=== PATIENT | female | born 1995 ===

== ENCOUNTER 2017-02-18 00:22 | Emergency (ER) | payer OTHER ==
[~2017-02-18] VITALS: Ht 157.5 cm; Wt 48.5 kg
[2017-02-18 00:30] VITALS: TEMP 36.8; Ht 157.5 cm; Wt 48.5 kg
[2017-02-18 01:02] LABS: BASO % 0.1 %; BASO ABS # 0.01 K/uL (0-0.2); COMPLETE YES; EOS % 1.2 %; HEMATOCRIT 41.5 % (37-47); IG% 0.1 %; LYMPH % 49.2 %; LYMPH ABS # 3.76 K/uL (1.2-3.4); MEAN CELL VOLUME 88.9 fL (80-100); MEAN CORPUSCULAR HEMOGLOBIN 30.4 pg (25-34); MEAN CORPUSCULAR HGB CONC 34.2 g/dl (32-36); MEAN PLATELET VOLUME 9.4 fL (7.4-10.4); MONO % 7.3 %; NEUT % 42.1 %; PLATELET COUNT 276 K/uL (130-400); RED BLOOD COUNT 4.67 M/uL (4.2-5.4); WHITE BLOOD COUNT 7.64 K/uL (4.8-10.8)
[2017-02-18] MEDS ORDERED: BCPILLS PO (01:18)
[2017-02-18 01:19] LABS: MANUAL MICROSCOPIC REQUIRED? NO; REVIEW REQ? NO; URINE APPEARANCE CLEAR (CLEAR); URINE BILIRUBIN NEG (NEG); URINE COLOR YELLOW; URINE NITRITE NEG (NEG); URINE SPECIFIC GRAVITY 1.009 (1.000-1.030); UROBILINOGEN NEG (NEG)
[2017-02-18 01:27] LABS: ALT/SGPT 44 U/L (12-78); AST/SGOT 26 U/L (15-37); BLOOD UREA NITROGEN 6 mg/dl (7-18); CALCIUM 8.9 mg/dl (8.5-10.1); CARBON DIOXIDE 26 mmol/L (21-32); CHLORIDE 106 mmol/L (98-107); CREATININE 0.69 mg/dl (0.60-1.20); GLUCOSE 90 mg/dl (70-99); POTASSIUM 3.3 mmol/L (3.5-5.1); SODIUM 137 mmol/L (136-145)
[2017-02-18 01:29] LABS: ALKALINE PHOSPHATASE 71 U/L (45-117)
[2017-02-18 03:20] VITALS: BP 122/76; PULSE 72; O2SAT 100
--- NOTE | 2017-02-18 03:46 | EMERGENCY ROOM VISIT NOTE ---
History Report prepared by Dionibe: Alice Aggarwal Under the Supervision of: Dr. Feng Lobo M.D. First contact with patient: 00:36 Chief Complaint: KIDNEY STONE Stated Complaint: KIDNEY STONE History of Present Illness The patient is a 21 year old female who presents to the Emergency Room with complaints of worsening right sided flank pain for the past 2 days. The pain is located in her right sided flank and she rates her discomfort as a 5/10 in severity. She admits to a history of kidney stones, stating they were first diagnosed this past summer, back at home in [place], [place]. She denies any recent traumatic injuries to her back or lifting anything heavy recently. She complains of increasingly malodorous urine but denies any hematuria or dysuria. She has experienced a loss of appetite and nausea since her pain started. She also complains of a recent cough and cold symptoms, for which she has been taking DayQuil. Her LMP was 2 weeks ago and abnormally normal. The patient denies any recent LOC, headache, fevers, chills, diaphoresis, visual changes, neck pain, chest pain, breathing difficulties, vomiting, abdominal pain, melena , hematochezia, numbness, weakness, lymphadenopathy, rash, or other complaints. Source of History: patient Onset: 2 days [employer] Position: back (right sided flank) Symptom Intensity: 5/10 Timing: worsening Associated Symptoms: + cough (cough and cold symptoms), + nausea, + urinary symptoms Review of Systems See HPI for pertinent positives and negatives. A total of ten systems were reviewed and were otherwise negative. Past Medical & Surgical Medical Problems: (1) Kidney stones Social History Smoking Status: Never Smoker Alcohol Use: occasionally Drug Use: none Marital Status: single Housing Status: lives with roommate Occupation Status: [employer] student Current/Historical Medications Scheduled Control Pills ( Control Pills), 1 TAB PO DAILY Physical Exam Vital Signs Date Time Temp Pulse Resp B/P (MAP) Pulse Ox O2 Delivery O2 Flow Rate FiO2 02/18/17 03:20 72 18 122/76 100 02/18/17 01:44 70 18 116/68 100 Room Air 02/18/17 01:20 78 02/18/17 00:30 36.8 86 20 118/82 99 Room Air Physical Exam GENERAL: Awake, alert, well-appearing, in no distress HENT: Normocephalic, atraumatic. Oropharynx unremarkable. EYES: Normal conjunctiva. Sclera non-icteric. NECK: Supple. No nuchal rigidity. FROM. No JVD. RESPIRATORY: Clear to auscultation. CARDIAC: Regular rate, normal rhythm. Extremities warm and well perfused. Pulses equal. ABDOMEN: Soft, non-distended. No tenderness to palpation. No rebound or guarding. No masses. RECTAL: Deferred. MUSCULOSKELETAL: Chest examination reveals no tenderness. The back is symmetrical on inspection without obvious abnormality. Right sided CVA tenderness to palpation. No joint edema. LOWER EXTREMITIES: Calves are equal size bilaterally and non-tender. No edema. No discoloration. NEURO: Normal sensorium. No sensory or motor deficits noted. SKIN: No rash or jaundice noted. Medical Decision & Procedures ER Provider Diagnostic Interpretation: Radiology results as stated below per my review and radiologist interpretation: CT ABDOMEN & PELVIS Without Contrast: Bilateral renal pelviectasis or extrarenal pelves. No evidence of ureteral stone. Mildly thickened underdistended bladder. Areas of mild small bowel wall thickening or underdistention. Correlate clinically for enteritis. No evidence of bowel obstruction. Normal caliber appendix. Radiologist: Zahra Moscoso M.D. Laboratory Results 02/18/17 00:50 Red Blood Count 4.67, Mean Corpuscular Volume 88.9, Mean Corpuscular Hemoglobin 30.4, Mean Corpuscular Hemoglobin Concent 34.2, Mean Platelet Volume 9.4, Neutrophils (%) (Auto) 42.1, Lymphocytes (%) (Auto) 49.2, Monocytes (%) (Auto) 7.3, Eosinophils (%) (Auto) 1.2, Basophils (%) (Auto) 0.1, Neutrophils # (Auto) 3.21, Lymphocytes # (Auto) 3.76, Monocytes # (Auto) 0.56, Eosinophils # (Auto) 0.09, Basophils # (Auto) 0.01 02/18/17 00:50 Test 02/18/17 00:50 02/18/17 00:55 White Blood Count 7.64 K/uL (4.8-10.8) Red Blood Count 4.67 M/uL (4.2-5.4) Hemoglobin 14.2 g/dL (12.0-16.0) Hematocrit 41.5 % (37-47) Mean Corpuscular Volume 88.9 fL (80-100) Mean Corpuscular Hemoglobin 30.4 pg (25-34) Mean Corpuscular Hemoglobin Concent 34.2 g/dl (32-36) Platelet Count 276 K/uL (130-400) Mean Platelet Volume 9.4 fL (7.4-10.4) Neutrophils (%) (Auto) 42.1 % Lymphocytes (%) (Auto) 49.2 % Monocytes (%) (Auto) 7.3 % Eosinophils (%) (Auto) 1.2 % Basophils (%) (Auto) 0.1 % Neutrophils # (Auto) 3.21 K/uL (1.4-6.5) Lymphocytes # (Auto) 3.76 K/uL (1.2-3.4) Monocytes # (Auto) 0.56 K/uL (0.11-0.59) Eosinophils # (Auto) 0.09 K/uL (0-0.5) Basophils # (Auto) 0.01 K/uL (0-0.2) RDW Standard Deviation 37.4 fL (36.4-46.3) RDW Coefficient of Variation 11.7 % (11.5-14.5) Immature Granulocyte % (Auto) 0.1 % Immature Granulocyte # (Auto) 0.01 K/uL (0.00-0.02) Anion Gap 5.0 mmol/L (3-11) Est Creatinine Clear Calc Drug Dose 100.4 ml/min Estimated GFR () 146.3 Estimated GFR (Non- 126.2 BUN/Creatinine Ratio 9.0 (10-20) Calcium Level 8.9 mg/dl (8.5-10.1) Total Bilirubin 0.3 mg/dl (0.2-1) Direct Bilirubin < 0.1 mg/dl (0-0.2) Aspartate Amino Transf (AST/SGOT) 26 U/L (15-37) Alanine Aminotransferase (ALT/SGPT) 44 U/L (12-78) Alkaline Phosphatase 71 U/L (45-117) Total Protein 8.3 gm/dl (6.4-8.2) Albumin 4.5 gm/dl (3.4-5.0) Lipase 247 U/L (73-393) Urine Color YELLOW Urine Appearance CLEAR (CLEAR) Urine pH 6.0 (4.5-7.5) Urine Specific [place] 1.009 (1.000-1.030) Urine Protein NEG (NEG) Urine Glucose (UA) NEG (NEG) Urine Ketones NEG (NEG) Urine Occult Blood NEG (NEG) Urine Nitrite NEG (NEG) Urine Bilirubin NEG (NEG) Urine Urobilinogen NEG (NEG) Urine Leukocyte Esterase NEG (NEG) Urine Test NEG (NEG) Laboratory results reviewed by me ED Course 0041: The patient was evaluated in room C9. A complete history and physical exam was performed. 0150: I reevaluated the patient. She is resting comfortably. 0235: I reevaluated the patient. She is feeling well and resting comfortably. I discussed her results and discharge instructions and she verbalized complete understanding and agreement. Medical Decision Triage Nursing notes reviewed. The patient's presentation and history were concerning for flank pain. ETiologies such as renal colic, appendicitis, diverticulitis, mesenteric ischemia, aortic pathology, infections, inflammatory bowel disease, PUD, biliary pathology, UTI, as well as others were entertained. The patient was evaluated. She had right CVA tenderness. States that she has a history of kidney stones. On further discussion she states she had a urine test and blood work done without any imaging and was told that she has kidney stones. The patient declined analgesia. Her CBC, chemistry panel, LFTs , lipase, and urinalysis were negative. The patient had CT imaging performed. There is no evidence of pathology in the right flank. Radiology questioned a possible enteritis but the patient has no GI symptoms. It is on the right flank. On further discussion with the patient she notes that her symptoms actually started about 10 months ago here and she had urinary tract infection- like symptoms. She denies being treated for that episode. She states that the symptoms resolved within the flank pain would come and go. A urine culture was sent. The patient is not . I discussed conservative management with close follow-up as an outpatient. She was in agreement. The patient was referred to urology. The exact etiology of her recurrent flank pain is not obvious at this time. I gave my usual and customary discussion regarding this issue. By the evaluation outlined above other emergent etiologies such as those listed in the differential, as well as others, were deemed relatively unlikely. The patient was educated about the findings as listed above. All questions were answered and the patient was pleased with the treatment. Return instructions were outlined and the patient was discharged in stable condition. The patient was referred to urology for follow-up for a recheck of the current condition. Medication Reconcilliation Current Medication List: was personally reviewed by me Blood Pressure Screening Patient's blood pressure: Normal blood pressure Blood pressure disposition: Did not require urgent referral Impression Primary Impression: Right flank pain Scribe Attestation The scribe's documentation has been prepared under my direction and personally reviewed by me in its entirety. I confirm that the note above accurately reflects all work, treatment, procedures, and medical decision making performed by me. Departure Information Dispostion Home / Self-Care Referrals No Doctor, Assigned (PCP) Patient Instructions My [facility] Additional Instructions Ibuprofen(Motrin, Advil) may be used for fever or pain. Use 600mg every six hours as needed. Take with food. Avoid using more than 2400mg in a 24 hour period. Do not use 2400mg per day for more than three consecutive days without physician direction. Prolonged inappropriate use can lead to stomach upset or ulcers. (AND/OR) Acetaminophen(Tylenol) may be used for fever or pain. Use 1000mg every six hours as needed. Avoid using more than 3000mg in a 24 hour period. Rest and avoid strenuous activity until your symptoms resolve. Drink plenty of fluids. Return to the ER for worsening abdominal or back pain, vomiting, fevers, passing out, or as needed. Follow up with [facility] monday, [phone], to arrange a visit.
--- NOTE | 2017-02-18 06:24 | DIAGNOSTIC IMAGING REPORT ---
ABD/PELVIS WITHOUT FOR STONE CLINICAL HISTORY: 21 years-old Female presenting with FLANK PAIN-RIGHT. TECHNIQUE: Multidetector CT of the abdomen and pelvis was performed without the use of intravenous contrast. IV contrast: None. A dose lowering technique was used consistent with the principles of ALARA (as low as reasonably achievable). COMPARISON: None. CT DOSE (mGy.cm): The estimated cumulative dose is 298.24 mGy.cm. FINDINGS: Director Stars topogram: Unremarkable. Lung bases: Lung bases clear. Normal heart size. No pericardial or pleural effusion. Liver: Normal morphology. Normal density. Biliary: No gross biliary ductal dilatation allowing for noncontrast technique. Normal gallbladder. Pancreas: Normal noncontrast appearance. Spleen: Normal noncontrast appearance. Adrenal glands: Normal noncontrast appearance. Kidneys and ureters: Normal noncontrast appearance. No hydronephrosis. Normal ureters. Bladder: Mild circumferential bladder wall thickening. Pelvic organs: Normal noncontrast appearance. Bowel: Normal appendix. No bowel obstruction. Mild small bowel wall thickening suggested in a loop of small bowel in the superior pelvis (series 3 image 262). No perienteric fat stranding. Peritoneal cavity: No free fluid or intraperitoneal gas. Lymph nodes: No gross lymphadenopathy allowing for noncontrast technique. Vasculature: Normal noncontrast appearance. Abdominal wall: Normal. Musculoskeletal: Transitional lumbosacral anatomy of the right transverse process of L5. Osseous structures otherwise normal. IMPRESSION: 1. Mild circumference of bladder wall thickening suggest cystitis. Correlate with urinalysis. No hydronephrosis. No evidence of nephrolithiasis. 2. Allowing for noncontrast technique, suggestive small bowel wall thickening in a loop of bowel in the superior pelvis. This could suggest mild enteritis. No perienteric inflammatory change. Electronically signed by: Magnus Painting M.D. 02/18/2017 6:23 AM Dictated Date/Time: 02/18/2017 6:18 AM
== END 2017-02-18 03:27 | disposition home or self-care (01) ==
LOC: C.EDB 00:24 → C.EDC 03:27
DX: R10.30 Lower abdominal pain, unspecified (principal); Z87.442 Personal history of urinary calculi